=== PATIENT | female | born 1990 | race American Indian/Alaskan Native ===

== ENCOUNTER 2018-05-17 09:23 | Day surgery (SDC) | payer OTHER ==
[~2018-05-17] VITALS: Ht 160 cm; Wt 55.6 kg
[~2018-05-17 09:23] MED LIST: BIRTH CONTROL PILL; IBUP600 PO; IBUP800 PO; MULVITMINE PO
== END 2018-05-17 14:26 | disposition home or self-care (01) ==
LOC: ORSCSDS 09:23
PROVIDERS: Podiatrist Foot & Ankle Surgery
PROC: 0L8P0ZZ Division of Left Lower Leg Tendon, Open Approach (ICD-10-PCS; principal; 2018-05-17 11:00)
PROC: 0QSM0ZZ Reposition Left Tarsal, Open Approach (ICD-10-PCS; principal; 2018-05-17 11:00)
PROC: 0LSW0ZZ Reposition Left Foot Tendon, Open Approach (ICD-10-PCS; principal; 2018-05-17 11:00)
DX: M21.42 Flat foot [pes planus] (acquired), left foot (principal); M24.573 Contracture, unspecified ankle; M21.072 Valgus deformity, not elsewhere classified, left ankle; E03.9 Hypothyroidism, unspecified
CPT/HCPCS: C1713; J0690; J1100; J1885; J2250; J2405; J3010; J7120

== ENCOUNTER 2019-07-04 08:54 | Day surgery (SDC) | payer OTHER ==
[~2019-07-04] VITALS: Ht 160 cm; Wt 54.2 kg
[~2019-07-04 08:54] MED LIST changes: +BIRTH CONTROL PILLS; +Cheratussin AC118 ML PO
== END 2019-07-04 11:50 | disposition home or self-care (01) ==
LOC: ORSCSDS 08:54
PROVIDERS: Podiatrist Foot & Ankle Surgery
PROC: 0QPM04Z Removal of Internal Fixation Device from Left Tarsal, Open Approach (ICD-10-PCS; principal; 2019-07-04 15:30)
DX: T84.84XA Pain due to internal orthopedic prosthetic devices, implants and grafts, initial encounter (principal); Z96.9 Presence of functional implant, unspecified
CPT/HCPCS: J0171; J0690; J2250; J2704; J3010; J7120

== ENCOUNTER 2020-08-11 22:58 | Inpatient (IN) | payer OTHER ==
[~2020-08-11] VITALS: Ht 160 cm; Wt 67.7 kg
[2020-08-11 23:21] LABS: BASOPHILS ABSOLUTE AUTO 0.04 K/mm3 (0.00-0.23); BASOPHILS PERCENT AUTO 0 % (0-2); EOSINOPHILS ABSOLUTE AUTO 0.12 K/mm3 (0.00-0.68); EOSINOPHILS PERCENT AUTO 1 % (0-6); Hematocrit 35.7 % (33.0-51.0); Hemoglobin 10.6 g/dL (11.5-16.0); IMMATURE GRAN ABSOLUTE AUTO 0.08 K/mm3 (0.00-0.10); IMMATURE GRAN PERCENT AUTO 1 % (0-1); LYMPHOCYTES ABSOLUTE AUTO 3.87 K/mm3 (0.84-5.20); LYMPHOCYTES PERCENT AUTO 31 % (21-46); MONOCYTES ABSOLUTE AUTO 0.64 K/mm3 (0.16-1.47); MONOCYTES PERCENT AUTO 5 % (4-13); Mean Corpuscular HGB 20.9 pg (26.0-34.0); Mean Corpuscular HGB Conc 29.7 g/dL (31.5-36.5); Mean Corpuscular Volume 71 fL (80-100); Mean Platelet Volume 9.7 fL (9.1-12.4); NEUTROPHILS ABSOLUTE AUTO 7.69 K/mm3 (1.96-9.15); NEUTROPHILS PERCENT AUTO 62 % (41-73); NRBC ABSOLUTE 0.03 K/mm3 (0.00-0.02); NRBC Auto 0.2 /100 WBC (0.0-0.2); Platelet Count 326 K/mm3 (150-400); RDW Coefficient Variation 15.8 % (11.7-14.2); RDW Standard Deviation 38.9 fL (35.1-46.3); Red Blood Cell Count 5.06 M/mm3 (3.80-5.20); White Blood Cell Count 12.44 K/mm3 (4.00-11.30)
[2020-08-11] MEDS ORDERED: IRON18 MG PO (23:33)
[2020-08-13 05:29] LABS: BASOPHILS ABSOLUTE AUTO 0.04 K/mm3 (0.00-0.23); BASOPHILS PERCENT AUTO 0 % (0-2); EOSINOPHILS ABSOLUTE AUTO 0.28 K/mm3 (0.00-0.68); EOSINOPHILS PERCENT AUTO 2 % (0-6); Hematocrit 36.9 % (33.0-51.0); IMMATURE GRAN ABSOLUTE AUTO 0.08 K/mm3 (0.00-0.10); IMMATURE GRAN PERCENT AUTO 1 % (0-1); LYMPHOCYTES ABSOLUTE AUTO 3.97 K/mm3 (0.84-5.20); LYMPHOCYTES PERCENT AUTO 29 % (21-46); MONOCYTES ABSOLUTE AUTO 0.86 K/mm3 (0.16-1.47); MONOCYTES PERCENT AUTO 6 % (4-13); Mean Corpuscular HGB 21.2 pg (26.0-34.0); Mean Corpuscular HGB Conc 29.8 g/dL (31.5-36.5); Mean Corpuscular Volume 71 fL (80-100); Mean Platelet Volume 9.3 fL (9.1-12.4); NEUTROPHILS ABSOLUTE AUTO 8.29 K/mm3 (1.96-9.15); NEUTROPHILS PERCENT AUTO 61 % (41-73); Platelet Count 358 K/mm3 (150-400); RDW Coefficient Variation 15.9 % (11.7-14.2); RDW Standard Deviation 39.8 fL (35.1-46.3); Red Blood Cell Count 5.19 M/mm3 (3.80-5.20); White Blood Cell Count 13.52 K/mm3 (4.00-11.30)
[2020-08-13] MEDS ORDERED: PRENATAL TABLE1 EAC2 PO (10:49)
[2020-08-13] MEDS ORDERED: IBUP800 PO (10:49)
== END 2020-08-13 12:32 | disposition home or self-care (01) | DRG 807 ==
LOC: OBS 22:58 → BC 22:59 → OBS 23:00 → BC 08-12 19:54
PROVIDERS: ADMIT Nurse Practitioner Obstetrics & Gynecology
PROC: 10E0XZZ Delivery of Products of Conception, External Approach (ICD-10-PCS; principal; 2020-08-12)
PROC: 00HU33Z Insertion of Infusion Device into Spinal Canal, Percutaneous Approach (ICD-10-PCS; 2020-08-12)
PROC: 3E0R3BZ Introduction of Anesthetic Agent into Spinal Canal, Percutaneous Approach (ICD-10-PCS; 2020-08-12)
PROC: 10H07YZ Insertion of Other Device into Products of Conception, Via Natural or Artificial Opening (ICD-10-PCS; 2020-08-12)
DX: O99.284 Endocrine, nutritional and metabolic diseases complicating childbirth (principal); Z37.0 Single live birth; E03.9 Hypothyroidism, unspecified; Z3A.38 38 weeks gestation of pregnancy
CPT/HCPCS: 36415; 51702; 85025; 86850; 86900; 86901; A9270; J1885; J2001; J2210; J2405; J2590; J3010; J7120; U0004

== ENCOUNTER 2020-10-14 08:44 | Day surgery (SDC) | payer OTHER ==
[~2020-10-14] VITALS: Ht 160 cm; Wt 59.1 kg
[~2020-10-14 08:44] MED LIST changes: +IRON18 MG PO; +PRENATAL TABLE1 EAC2 PO; +[UNRECOGNIZED DRUG - REMARK]
[2020-10-14] MEDS ORDERED: IBUP600 PO (09:24)
--- NOTE | 2020-10-14 10:14 | NUR ---
10/14/20 1014 Deirdre Chappell ORSC.JAR LOWER PREP ORSC.JHP UPPER PREP ORSC.HSR IN ROOM AT START OF CASE.
== END 2020-10-14 11:35 | disposition home or self-care (01) ==
LOC: ORSCSDS 08:44
PROVIDERS: Obstetrics & Gynecology
PROC: 0UT74ZZ Resection of Bilateral Fallopian Tubes, Percutaneous Endoscopic Approach (ICD-10-PCS; principal; 2020-10-14 10:00)
DX: Z30.2 Encounter for sterilization (principal); N80.3 Endometriosis of pelvic peritoneum
CPT/HCPCS: 88302; J0171; J0690; J1100; J1885; J2250; J2405; J2704; J2710; J3010; J7120

== ENCOUNTER 2021-04-15 06:09 | Day surgery (SDC) | payer OTHER ==
[~2021-04-15] VITALS: Ht 160 cm; Wt 57.0 kg
--- NOTE | 2021-04-15 07:34 | NUR ---
04/15/21 0734 Melita Rea EPI 1:1000 0.15CC MIXED INTO 0.5% [place] [facility] TO MAKE 1:200,000
== END 2021-04-15 08:22 | disposition home or self-care (01) ==
LOC: ORSCSDS 06:09
PROVIDERS: Podiatrist Foot & Ankle Surgery
PROC: 0QPM04Z Removal of Internal Fixation Device from Left Tarsal, Open Approach (ICD-10-PCS; principal; 2021-04-15 07:30)
DX: T84.84XA Pain due to internal orthopedic prosthetic devices, implants and grafts, initial encounter (principal); M25.572 Pain in left ankle and joints of left foot
CPT/HCPCS: J0171; J0690; J1100; J2250; J2370; J2405; J2704; J3010; J7120

== ENCOUNTER → 2023-01-09 | Outpatient (CLI) | payer OTHER | END | disposition home or self-care (01) | LOC: LAB SHORT 10:46 | DX: N39.0 Urinary tract infection, site not specified (principal) | CPT/HCPCS: 87077; 87086; 87186 ==